=== PATIENT | male | born 1935 | race Caucasian/White ===

== ENCOUNTER 2017-06-30 11:12 | Inpatient (IN) | payer MEDICAID ==
[~2017-06-30] VITALS: Ht 165.1 cm; Wt 74.8 kg
[2017-06-30] MEDS ORDERED: ASPI-1159 PO (12:10)
[2017-06-30] MEDS ORDERED: UNKNOWN BP MED (12:10)
[2017-06-30] MEDS ORDERED: SODIUM CHLORIDE 0.9% 1,000 ML IV ONE (13:10)
[2017-06-30] MEDS ORDERED: ACETAMINOPHEN 325MG TABLET PO ONE (13:15)
[2017-06-30 13:56] LABS: BASOPHILS % 0.2 % (0.0-2.0); EOSINOPHILS % 0.5 % (0.0-5.0); HEMATOCRIT. 35.2 % (42.0-52.0); HEMOGLOBIN. 12.2 g/dL (14.0-18.0); LYMPHOCYTES % 9.7 % (20.0-50.0); MEAN CORPUSCULAR HEMOGLOBIN 29.9 pg (28.0-32.0); MEAN CORPUSCULAR VOLUME 86.1 fL (80.0-94.0); MEAN PLATELET VOLUME 7.7 fl (7.4-10.4); MONOCYTES % 5.6 % (2.0-8.0); PLATELET 428 x1000/uL (130-400); RED BLOOD CELL COUNT 4.09 mill/uL (4.7-6.1); RED CELL DISTRIBUTION WIDTH 15.2 % (11.6-14.6)
[2017-06-30 14:03] LABS: PROTHROMBIN TIME 10.8 sec (9.4-11.6)
[2017-06-30 14:14] LABS: CHLORIDE 90 mEq/L (98-107)
[2017-06-30 16:22] LABS: CLARITY URINE CLEAR (CLEAR); COLOR URINE YELLOW (YELLOW); KETONES URINE 1+ (NEGATIVE); LEUKOCYTE ESTERASE URINE NEGATIVE (NEGATIVE); NITRITE URINE NEGATIVE (NEGATIVE); OCCULT BLOOD URINE TRACE (NEGATIVE); PROTEIN URINE 3+ (NEGATIVE); SPECIFIC GRAVITY URINE 1.015 (1.005-1.030)
[2017-06-30] MEDS ORDERED: CLONIDINE 0.2MG TABLET PO ONE (19:45)
[2017-06-30] MEDS ORDERED: MORPHINE SULFATE 4 MG/ML CPJ (NOT FOR IM USE) IV NR (19:59)
[2017-07-01] VITALS (8 sets, daily range): BP systolic 120–174; BP diastolic 70–100
[2017-07-01] MEDS ORDERED: CLONIDINE 0.1MG TABLET PO PRN (01:30)
[2017-07-01] MEDS: MORPHINE SULFATE 4 MG/ML CPJ (NOT FOR IM USE) IV PRN ×3 (01:42→15:23)
[2017-07-01] MEDS: AMLODIPINE 5MG TABLET PO SCH ×2 (09:00→21:26)
[2017-07-01] MEDS: ENOXAPARIN 40MG/0.4ML SYR SUBCUT SCH (09:01)
[2017-07-01] MEDS: ASPIRIN 81MG EC TABLET PO SCH (09:01)
[2017-07-01] MEDS: METOPROLOL TARTRATE 25MG TABLET PO SCH ×2 (09:01→21:26)
[2017-07-01] MEDS ORDERED: ATOR80TA PO (11:36)
[2017-07-01] MEDS ORDERED: SERT25TA PO (11:36)
[2017-07-01] MEDS ORDERED: CYAN10009 PO (11:36)
[2017-07-01] MEDS ORDERED: ACET-2178 PO (11:36)
[2017-07-01] MEDS ORDERED: RIVA10TA PO (11:36)
[2017-07-01] MEDS ORDERED: LISI-186 PO (11:36)
[2017-07-01] MEDS ORDERED: DOCU-150 PO (11:36)
[2017-07-01] MEDS ORDERED: CARV25TA47 PO (11:36)
[2017-07-01] MEDS ORDERED: FURO-152 PO (11:36)
[2017-07-01] MEDS: SODIUM CHLORIDE 0.9% 1,000 ML IV SCH (15:23)
[2017-07-01] MEDS: CARVEDILOL 25MG TABLET PO SCH ×2 (15:23→21:27)
[2017-07-01] MEDS: DOCUSATE SODIUM 100MG CAPSULE PO PRN (15:34)
[2017-07-01 17:09] LABS: *AMPHETAMINES SCREEN URINE NEGATIVE (NEGATIVE); *BARBITURATES SCREEN URINE NEGATIVE (NEGATIVE); *BENZODIAZEPINES SCREEN URINE NEGATIVE (NEGATIVE); *COCAINE SCREEN URINE NEGATIVE (NEGATIVE); CANNABINOID URINE SCREEN NEGATIVE (NEGATIVE); METHADONE URINE SCREEN NEGATIVE (NEGATIVE); OPIATES URINE SCREEN PRESUMTIVE POSITIVE (NEGATIVE); PHENCYCLIDINE URINE SCREEN NEGATIVE (NEGATIVE)
[2017-07-01] MEDS ORDERED: RIVAROXABAN 10 MG TABLET PO SCH (18:00)
[2017-07-01] MEDS ORDERED: IOHEXOL-350 100 ML BOTTLE ONE (20:29)
[2017-07-01] MEDS: SERTRALINE HCL 25MG TABLET PO SCH (21:27)
[2017-07-02] VITALS: BP 122/66
[2017-07-02] MEDS: MORPHINE SULFATE 4 MG/ML CPJ (NOT FOR IM USE) IV PRN ×2 (03:12→08:56)
[2017-07-02 04:00] VITALS: BP 136/85
[2017-07-02] MEDS: SODIUM CHLORIDE 0.9% 1,000 ML IV SCH (05:43)
[2017-07-02 06:28] LABS: BASOPHILS % 0.8 % (0.0-2.0); EOSINOPHILS % 7.5 % (0.0-5.0); HEMATOCRIT. 33.2 % (42.0-52.0); HEMOGLOBIN. 11.3 g/dL (14.0-18.0); LYMPHOCYTES % 20.2 % (20.0-50.0); MEAN CORPUSCULAR HEMOGLOBIN 29.7 pg (28.0-32.0); MEAN CORPUSCULAR VOLUME 87.3 fL (80.0-94.0); MEAN PLATELET VOLUME 8.1 fl (7.4-10.4); MONOCYTES % 9.6 % (2.0-8.0); NEUTROPHILS % 61.9 % (40.0-76.0); PLATELET 372 x1000/uL (130-400); RED CELL DISTRIBUTION WIDTH 15.4 % (11.6-14.6)
[2017-07-02] MEDS: HYDROCODONE/ACETAMINOPHEN 5/325MG TABLET PO PRN ×2 (06:28→19:02)
[2017-07-02 08:00] VITALS: BP 120/66
[2017-07-02] MEDS: CYANOCOBALAMIN 1000MCG TABLET PO SCH (08:50)
[2017-07-02] MEDS: CARVEDILOL 25MG TABLET PO SCH (08:50)
[2017-07-02] MEDS: ENOXAPARIN 40MG/0.4ML SYR SUBCUT SCH (08:50)
[2017-07-02] MEDS: METOPROLOL TARTRATE 25MG TABLET PO SCH (08:50)
[2017-07-02] MEDS: ASPIRIN 81MG EC TABLET PO SCH (08:50)
[2017-07-02] MEDS: AMLODIPINE 5MG TABLET PO SCH ×2 (08:52→21:32)
[2017-07-02] MEDS: LISINOPRIL 5MG TABLET PO SCH (08:52)
[2017-07-02] MEDS: DOCUSATE SODIUM 100MG CAPSULE PO PRN (08:56)
[2017-07-02 12:00] VITALS: BP 128/67
[2017-07-02 16:00] VITALS: BP 118/64
[2017-07-02 20:00] VITALS: BP 154/75
[2017-07-02] MEDS: LACTULOSE 20G/30ML UDC PO SCH (21:32)
[2017-07-02] MEDS: SERTRALINE HCL 25MG TABLET PO SCH (21:32)
[2017-07-03] VITALS (9 sets, daily range): BP systolic 118–164; BP diastolic 59–86
[2017-07-03] MEDS: HYDROCODONE/ACETAMINOPHEN 5/325MG TABLET PO PRN ×5 (00:30→20:09)
[2017-07-03] MEDS: LACTULOSE 20G/30ML UDC PO SCH ×3 (05:54→22:24)
[2017-07-03] MEDS: CYANOCOBALAMIN 1000MCG TABLET PO SCH (09:21)
[2017-07-03] MEDS: ACETAMINOPHEN 325MG TABLET PO PRN (09:21)
[2017-07-03] MEDS: LISINOPRIL 5MG TABLET PO SCH (09:21)
[2017-07-03] MEDS: ASPIRIN 81MG EC TABLET PO SCH (09:21)
[2017-07-03] MEDS: AMLODIPINE 5MG TABLET PO SCH ×2 (09:22→20:09)
[2017-07-03] MEDS: ENOXAPARIN 40MG/0.4ML SYR SUBCUT SCH (09:22)
[2017-07-03] MEDS: FUROSEMIDE 20MG TABLET PO SCH (18:20)
[2017-07-03] MEDS: MORPHINE SULFATE 4 MG/ML CPJ (NOT FOR IM USE) IV PRN ×2 (18:20→22:30)
[2017-07-03] MEDS: SERTRALINE HCL 25MG TABLET PO SCH (20:09)
[2017-07-03] MEDS: LISINOPRIL 20MG TABLET PO SCH (22:24)
[2017-07-04] VITALS (8 sets, daily range): BP systolic 118–142; BP diastolic 63–75
[2017-07-04] MEDS: LACTULOSE 20G/30ML UDC PO SCH ×3 (06:06→21:38)
[2017-07-04] MEDS: HYDROCODONE/ACETAMINOPHEN 5/325MG TABLET PO PRN ×2 (06:07→14:25)
[2017-07-04] MEDS: ASPIRIN 81MG EC TABLET PO SCH (08:58)
[2017-07-04] MEDS: LISINOPRIL 20MG TABLET PO SCH ×2 (08:59→21:38)
[2017-07-04] MEDS: FUROSEMIDE 20MG TABLET PO SCH (08:59)
[2017-07-04] MEDS: ACETAMINOPHEN 325MG TABLET PO PRN ×2 (08:59→16:05)
[2017-07-04] MEDS: AMLODIPINE 5MG TABLET PO SCH ×2 (08:59→20:07)
[2017-07-04] MEDS: MORPHINE SULFATE 4 MG/ML CPJ (NOT FOR IM USE) IV PRN ×3 (09:00→20:08)
[2017-07-04] MEDS: ENOXAPARIN 40MG/0.4ML SYR SUBCUT SCH (09:00)
[2017-07-04] MEDS: CYANOCOBALAMIN 1000MCG TABLET PO SCH (09:08)
[2017-07-04] MEDS ORDERED: SUMATRIPTAN SUCCINATE 25MG TABLET PO NR (11:00)
[2017-07-04] MEDS: AMITRIPTYLINE 25MG TABLET PO SCH (20:07)
[2017-07-04] MEDS: SERTRALINE HCL 25MG TABLET PO SCH (20:08)
[2017-07-05] MEDS: MORPHINE SULFATE 4 MG/ML CPJ (NOT FOR IM USE) IV PRN ×3 (00:42→19:58)
[2017-07-05 04:00] VITALS: BP 152/79
[2017-07-05] MEDS: LACTULOSE 20G/30ML UDC PO SCH ×3 (05:00→21:39)
[2017-07-05] MEDS: HYDROCODONE/ACETAMINOPHEN 5/325MG TABLET PO PRN (05:01)
[2017-07-05 08:00] VITALS: BP 157/82
[2017-07-05] MEDS: LISINOPRIL 20MG TABLET PO SCH ×2 (09:19→21:39)
[2017-07-05] MEDS: ASPIRIN 81MG EC TABLET PO SCH (09:19)
[2017-07-05] MEDS: CYANOCOBALAMIN 1000MCG TABLET PO SCH (09:19)
[2017-07-05] MEDS: AMLODIPINE 5MG TABLET PO SCH ×2 (09:19→20:01)
[2017-07-05] MEDS: ENOXAPARIN 40MG/0.4ML SYR SUBCUT SCH (09:20)
[2017-07-05 12:48] VITALS: BP 128/62
[2017-07-05 16:00] VITALS: BP 128/67
[2017-07-05 19:51] VITALS: BP 126/77
[2017-07-05] MEDS: AMITRIPTYLINE 25MG TABLET PO SCH (20:01)
[2017-07-05] MEDS: SERTRALINE HCL 25MG TABLET PO SCH (20:01)
[2017-07-06] VITALS: BP_SYST 151; BP_SYST 175; BP_DIAS 81; BP_DIAS 82
[2017-07-06 04:00] VITALS: BP 149/83
[2017-07-06] MEDS ORDERED: HYDROCODONE/ACETAMINOPHEN 5/325MG TABLET PO PRN (04:45)
[2017-07-06] MEDS: MORPHINE SULFATE 4 MG/ML CPJ (NOT FOR IM USE) IV PRN ×2 (04:51→11:45)
[2017-07-06] MEDS: LACTULOSE 20G/30ML UDC PO SCH ×2 (05:00→14:33)
[2017-07-06 08:00] VITALS: BP 142/74
[2017-07-06] MEDS: CYANOCOBALAMIN 1000MCG TABLET PO SCH (08:36)
[2017-07-06] MEDS: ASPIRIN 81MG EC TABLET PO SCH (08:36)
[2017-07-06] MEDS: LISINOPRIL 20MG TABLET PO SCH (08:38)
[2017-07-06] MEDS: AMLODIPINE 5MG TABLET PO SCH (08:38)
[2017-07-06] MEDS: ENOXAPARIN 40MG/0.4ML SYR SUBCUT SCH (08:39)
[2017-07-06 12:00] VITALS: BP 131/69
[2017-07-06] MEDS: ACETAMINOPHEN 325MG TABLET PO PRN (14:39)
[2017-07-06 16:00] VITALS: BP 119/68
[2017-07-06 17:58] VITALS: BP 131/63
== END 2017-07-06 18:30 | disposition home or self-care (01) | DRG 347 ==
LOC: ER 11:12 → 7WST 15:45 → EDBEDREQ 15:48 → ENRESERV 20:36
PROVIDERS: ADMIT Internal Medicine Nephrology; ATTEND Internal Medicine Nephrology
PROC: 4A00X4Z Measurement of Central Nervous Electrical Activity, External Approach (ICD-10-PCS; principal; 2017-07-05)
DX: S12.000A Unspecified displaced fracture of first cervical vertebra, initial encounter for closed fracture (principal); E87.1 Hypo-osmolality and hyponatremia; I11.9 Hypertensive heart disease without heart failure; R00.1 Bradycardia, unspecified; E86.9 Volume depletion, unspecified; R26.9 Unspecified abnormalities of gait and mobility; E78.5 Hyperlipidemia, unspecified; E78.00 Pure hypercholesterolemia, unspecified; R80.9 Proteinuria, unspecified; F32.9 Major depressive disorder, single episode, unspecified; W18.39XA Other fall on same level, initial encounter; Y93.89 Activity, other specified; Y99.8 Other external cause status; Z79.82 Long term (current) use of aspirin; Z72.89 Other problems related to lifestyle; Y92.009 Unspecified place in unspecified non-institutional (private) residence as the place of occurrence of the external cause
CPT/HCPCS: 36415; 70496; 71045; 74018; 80048; 80305; 81001; 82962; 83880; 84484; 93005; 93306; 93880; 93970; 96361; 96374; 97116; 97162; 97166; 97530; 97535; 97760; 99291; G0482; J1650; J2270; J7030; L0172; Q9967